=== PATIENT | female | born 1985 | race Caucasian/White ===

== ENCOUNTER 2020-08-13 06:59 | Day surgery (SDC) | payer OTHER ==
[~2020-08-13] VITALS: Ht 154.9 cm; Wt 50.9 kg
[2020-08-13 07:47] VITALS: BP 140/95
[2020-08-13 07:54] LABS: HCG UR SG 1.022 (1.003-1.030)
[2020-08-13] MEDS ORDERED: LIDOCAINE-MPF 1%, 2ML ONE (07:57)
[2020-08-13] MEDS ORDERED: CHLORHEXIDINE 15 ML UDC ONE (07:57)
[2020-08-13] MEDS ORDERED: CHLORHEXIDINE 15 ML UDC PO ONE (08:00)
[2020-08-13] MEDS ORDERED: LACTATED RINGERS 1,000 ML IV SCH (08:00)
[2020-08-13] MEDS ORDERED: LIDOCAINE-MPF 1%, 2ML INFIL ONE (08:00)
[2020-08-13] MEDS ORDERED: ONDA4TAB7 PO (08:01)
[2020-08-13] MEDS ORDERED: HYDR-2214 PO (08:01)
[2020-08-13] MEDS ORDERED: IRON1TAB63 PO (08:01)
[2020-08-13] MEDS ORDERED: AMOX875T PO (08:01)
[2020-08-13] MEDS ORDERED: FENTANYL PF 100 MCG/2ML ONE ×2 (08:16→10:25)
[2020-08-13] MEDS ORDERED: MIDAZOLAM 1 MG/ML, 2ML ONE (08:16)
[2020-08-13] MEDS ORDERED: FENTANYL PF 100 MCG/2ML IV PRN (08:30)
[2020-08-13] MEDS ORDERED: ONDANSETRON 2MG/ML, 2ML IVPush PRN (08:30)
[2020-08-13] MEDS ORDERED: PROMETHAZINE 25 MG/ML, 1ML IVPush PRN (08:30)
[2020-08-13] MEDS ORDERED: HYDROmorphone 1 MG/ML, 1ML INJ IVPush PRN (08:30)
[2020-08-13] MEDS ORDERED: MEPERIDINE/PF 25MG/0.5ML IVPush PRN (08:30)
[2020-08-13] MEDS ORDERED: OXYcodone 5 MG/5 ML ORAL.SOL UDC PO PRN (08:30)
[2020-08-13] MEDS ORDERED: HYDROcodone/APAP 7.5-325MG/15ML UDC PO PRN (08:30)
[2020-08-13] MEDS ORDERED: EPINEPHRINE 1 MG/ML, 1ML ONE (09:14)
[2020-08-13] MEDS ORDERED: LIDOCAINE/PF 1%, 30ML ONE (09:14)
[2020-08-13] MEDS ORDERED: OXYMETAZOLINE NASAL SPRAY 0.05%,30ML ONE (09:18)
[2020-08-13] MEDS ORDERED: PROPOFOL 10 MG/ML, 20ML ONE (09:25)
[2020-08-13] MEDS ORDERED: ONDANSETRON 2MG/ML, 2ML ONE (09:25)
[2020-08-13] MEDS ORDERED: DEXAMETHASONE 4 MG/ML, 1ML ONE (09:25)
[2020-08-13] MEDS ORDERED: BACITRACIN OINT 500U/GM, 15 GM ONE (09:40)
[2020-08-13] MEDS ORDERED: IBUP-1223 PO (09:56)
[2020-08-13] MEDS ORDERED: OXYC5TAB2 PO (09:56)
[2020-08-13] MEDS ORDERED: ACETAMINOPHEN 650 MG/20.3 ML UDC ONE (10:25)
[2020-08-13] MEDS ORDERED: OXYcodone 5 MG/5 ML ORAL.SOL UDC ONE (10:25)
[2020-08-13] MEDS ORDERED: ACETAMINOPHEN 650 MG/20.3 ML UDC PO PRN (11:00)
== END 2020-08-13 12:30 | disposition home or self-care (01) ==
LOC: OUT 06:59
PROVIDERS: ATTEND Otolaryngology
DX: S02.2XXA Fracture of nasal bones, initial encounter for closed fracture (principal); J34.2 Deviated nasal septum; Z20.822 Contact with and (suspected) exposure to COVID-19; V49.88XA Car occupant (driver) (passenger) injured in other specified transport accidents, initial encounter; Y93.89 Activity, other specified; Y92.89 Other specified places as the place of occurrence of the external cause; Y99.8 Other external cause status
CPT/HCPCS: 21320; 81025; 87635; J0171; J2250; J3010; J7120; U0003; U0005; J1100; J2405; J2704